=== PATIENT | male | born 1970 | race Caucasian/White ===

== ENCOUNTER 2017-01-27 14:41 | Emergency (ER) | payer MEDICAID, OTHER ==
[2017-01-27] MEDS ORDERED: Ibuprofen 600 MG Tab PO ONE (14:53)
--- NOTE | 2017-01-27 16:30 | EDM.PDOC ---
ED HPI GENERAL MEDICAL PROBLEM - General Chief Complaint: Back Pain or Injury Stated Complaint: BACK PAIN Time Seen by Provider: 01/27/17 15:00 Source of Information: Reports: Patient History Limitations: Reports: No Limitations - History of Present Illness INITIAL COMMENTS - FREE TEXT/NARRATIVE: 46 y.o.w. m with h/o chronic low back pain, came to the ed by PC due to R flank pain radiating to his R groin, which started a few days ago. No trauma. No bloody urine. Never dx'd with kidney stones. No N/V/D or dizziness oe any other acute medical issues at this time. 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 Lower Back Pain Score (Numeric/FACES): 4 - Related Data Allergies Allergy/AdvReac Type Severity Reaction Status Date / Time onion Allergy Swollen Verified 02/14/15 14:54 Tongue tramadol Allergy Nausea Verified 02/14/15 14:54 Home Meds: Home Meds Aspirin [Low Dose Aspirin EC] 81 mg DAILY 02/14/15 [History] Ibuprofen [Motrin] 600 mg PO DAILY #4 tab 01/27/17 [Rx] Ibuprofen [Motrin] 600 mg PO TID PRN #30 tab 01/27/17 [Rx] Tamsulosin [Tamsulosin 24 Hr] 0.4 mg PO DAILY #4 cap.er 01/27/17 [Rx] Past Medical History - Past Health History Medical/Surgical History: Denies Medical/Surgical History HEENT History: Reports: Other (See Below) Other HEENT History: born deaf left ear Cardiovascular History: Reports: CAD, Stents, Other (See Below) - Infectious Disease History Infectious Disease History: Reports: Chicken Pox, Mumps - Past Surgical History Cardiovascular Surgical History: Reports: Percutaneous Transluminal Angioplasty Social & Family History - Family History : Reports: Renal Disease/Insufficiency Endocrine/Metabolic: Reports: Diabetes, type II - Tobacco Use Smoking Status *Q: Never Smoker Second Hand Smoke Exposure: No - Caffeine Use Caffeine Use: Reports: Soda, Tea - Recreational Drug Use Recreational Drug Use: No ED ROS GENERAL - Review of Systems Review Of Systems: See Below Constitutional: Reports: No Symptoms HEENT: Reports: No Symptoms Respiratory: Reports: No Symptoms Cardiovascular: Reports: No Symptoms Endocrine: Reports: No Symptoms GI/Abdominal: Reports: No Symptoms : Reports: Flank Pain (r) Musculoskeletal: Reports: No Symptoms Skin: Reports: No Symptoms Neurological: Reports: No Symptoms Psychiatric: Reports: No Symptoms Hematologic/Lymphatic: Reports: No Symptoms Immunologic: Reports: No Symptoms ED EXAM, UPPER BACK/NECK PAIN - Physical Exam Exam: See Below Exam Limited By: No Limitations General Appearance: Alert, WD/WN, Mild Distress Eye Exam: Bilateral Eye: Normal Inspection Ears Exam: Normal External Exam Nose Exam: Normal Inspection Throat/Mouth Exam: Normal Inspection Head Exam: Atraumatic, Normocephalic Neck Exam: Non-Tender, Full Range of Motion, Normal Alignment Cardiovascular/Respiratory: Regular Rate, Rhythm, No M/R/G, Normal Peripheral Pulses GI/Abdominal: Normal Bowel Sounds (Male) Exam: No Hernia Rectal (Males) Exam: Deferred Back Exam: Normal Inspection Extremities: Normal Inspection, Normal Range of Motion 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 m with h/o chronic low back pain, came to the ed by PC due to R flank pain radiating to his R groin, which started a few days ago. No trauma. No bloody urine. Never dx'd with kidney stones. No N/V/D or dizziness oe any other acute medical issues at this time. BP 125/72 pulse 64 RR 18 pulse ox 99 temp 36.4 PE: R flank pain/tenderness Labs: CBC wasl, BMP was nl his BUN was 22, however. UA pos for hematuria no UTI Imaging: Stones in both kidneys, minor, no stone in ureter, no obstruction, no hydronephrosis. 1.4 cm LK rigt lower back, Please see report. Impression: Bilat kineystones with microsc hematuria, LK r lower back Tx: Motrin po ( pt refused I.M, I Vs). Flomax Reexam: Improved, pt was pain free on D/C Plan: D/C with instructions Last Recorded V/S: Last Vital Signs Temp 36.7 C 01/27/17 15:00 Pulse 85 01/27/17 16:33 Resp 20 01/27/17 16:33 BP 130/74 01/27/17 16:33 Pulse Ox 97 01/27/17 16:33 - Orders/Labs/Meds Orders: Active Orders 24 hr Category Date Time Status Cooling Warming Measures [RC] ASDIRECTED Care 01/27/17 14:54 Active Abdomen Pelvis wo Cont [CT] Stat Exams 01/27/17 14:53 Taken Ice Bag [Ice Therapy] [OM.PC] Routine Oth 01/27/17 14:54 Ordered Labs: Laboratory Tests 01/27/17 01/27/17 01/27/17 Range/Units 15:46 16:20 16:20 WBC 7.9 (4.5-12.0) X10-3/uL RBC 4.73 (4.30-5.75) x10(6)uL Hgb 15.4 (11.5-15.5) g/dL Hct 43.7 (30.0-51.3) % MCV 92.4 (80-96) fL MCH 32.5 (27.7-33.6) pg MCHC 35.2 (32.2-35.4) g/dL RDW 11.9 (11.5-15.5) % Plt Count 246 (125-369) X10(3)uL MPV 9.2 (7.4-10.4) fL Neut % (Auto) 66.8 (46-82) % Lymph % (Auto) 25.6 (13-37) % Nance % (Auto) 6.2 (4-12) % Eos % (Auto) 1 (1.0-5.0) % Baso % (Auto) 0 (0-2) % Neut # (Auto) 5.3 (1.6-8.3) # Lymph # (Auto) 2.0 (0.6-5.0) # Nance # (Auto) 0.5 (0.0-1.3) # Eos # (Auto) 0.1 (0.0-0.8) # Baso # (Auto) 0.0 (0.0-0.2) # Sodium 139 (135-145) mmol/L Potassium 4.0 (3.5-5.3) mmol/L Chloride 103 (100-110) mmol/L Carbon Dioxide 28 (21-32) mmol/L BUN 22 H (7-18) mg/dL Creatinine 1.1 (0.70-1.30) mg/dL Est Cr Clr Drug Dosing 91.12 mL/min Estimated GFR (MDRD) > 60 (>60) BUN/Creatinine Ratio 20.0 (9-20) Glucose 91 (80-116) mg/dL Calcium 8.8 (8.6-10.2) mg/dL Urine Color Yellow (YELLOW) Urine Appearance Clear (CLEAR) Urine pH 6.0 (5.0-6.5) Ur Specific Carlotta 1.025 (1.010-1.025) Urine Protein Negative (NEGATIVE) mg/dL Urine Glucose (UA) Normal (NEGATIVE) mg/dL Urine Ketones Negative (NEGATIVE) mg/dL Urine Occult Blood Large H (NEGATIVE) Urine Nitrite Negative (NEGATIVE) Urine Bilirubin Negative (NEGATIVE) Urine Urobilinogen Normal (NEGATIVE) mg/dL Ur Leukocyte Esterase Negative (NEGATIVE) Urine RBC 20-30 H (0) Urine WBC 0-5 (0) Ur Squamous Epith Cells Rare (NS,R,O) Urine Bacteria Occasional H (NS) Urine Mucus Occasional H (NS) Meds: Medications Discontinued Medications Generic Name Dose Route Start Last Admin Trade Name Freq PRN Reason Stop Dose Admin Ibuprofen 600 mg 01/27/17 14:53 01/27/17 16:14 Motrin PO 01/27/17 14:54 600 mg ONETIME ONE Administration Tamsulosin HCl 0.4 mg 01/27/17 16:32 01/27/17 16:35 Flomax PO 01/27/17 16:33 0.4 mg ONETIME ONE Administration Departure - Departure Time of Disposition: 16:24 Disposition: Home, Self-Care 01 Condition: Good Clinical Impression: Kidney stone on left side, Kidney stone on right side Hematuria Qualifiers: Hematuria type: other microscopic Qualified Code(s): R31.29 - Other microscopic hematuria - Discharge Information Prescriptions: Ibuprofen [Motrin] 600 mg PO DAILY #4 tab Ibuprofen [Motrin] 600 mg PO TID PRN #30 tab PRN Reason: Pain Tamsulosin [Tamsulosin 24 Hr] 0.4 mg PO DAILY #4 cap.er Referrals: Roberta Deshpande NP [Primary Care Provider] - Forms: ED Department Discharge Additional Instructions: Please take motrin for pain, please f/u with your PMD in 5 days to recheck the urine. urine must be free of blood then. Please come back to the ed if your symptoms get worse acutely. - My Orders Last 24 Hours: My Active Orders 01/27/17 14:53 Abdomen Pelvis wo Cont [CT] Stat 01/27/17 14:54 Cooling Warming Measures [RC] ASDIRECTED Ice Bag [Ice Therapy] [OM.PC] Routine - Assessment/Plan Last 24 Hours: My Active Orders 01/27/17 14:53 Abdomen Pelvis wo Cont [CT] Stat 01/27/17 14:54 Cooling Warming Measures [RC] ASDIRECTED Ice Bag [Ice Therapy] [OM.PC] Routine
[2017-01-27] MEDS ORDERED: Tamsulosin 0.4 MG Cap.ER PO ONE (16:32)
[2017-01-27 16:34] VITALS: BP 130/74
== END 2017-01-27 16:36 | disposition home or self-care (01) ==
LOC: FB.ED 14:41
DX: N20.0 Calculus of kidney (principal); R31.29 Other microscopic hematuria; I25.10 Atherosclerotic heart disease of native coronary artery without angina pectoris; Z79.82 Long term (current) use of aspirin; Z79.1 Long term (current) use of non-steroidal anti-inflammatories (NSAID); Z79.899 Other long term (current) drug therapy; Z88.5 Allergy status to narcotic agent; Z91.018 Allergy to other foods
CPT/HCPCS: 36415; 74176; 80048; 81001; 85025; 99284; A9270; 99283

== ENCOUNTER 2017-02-23 17:04 | Emergency (ER) | payer MEDICAID, OTHER ==
[2017-02-23] MEDS ORDERED: Ketorolac 30 MG/ML SDV IVPUSH ONE (17:23)
[2017-02-23] MEDS ORDERED: SUMAtriptan 6 MG/0.5 ML SDV SUBCUT ONE (17:24)
[2017-02-23] MEDS ORDERED: Ondansetron 4 MG/2 ML SDV IVPUSH ONE (17:25)
--- NOTE | 2017-02-23 17:27 | EDM.PDOC ---
ED HPI GENERAL MEDICAL PROBLEM - General Stated Complaint: shakey head ache Time Seen by Provider: 02/23/17 17:04 Source of Information: Reports: Patient (PC), Family History Limitations: Reports: Physical Impairment - History of Present Illness INITIAL COMMENTS - FREE TEXT/NARRATIVE: 46 y.o.w.m with a h/o kidneystones came to the ed with low back pain fewer and worst headache ever, located behind his left eye with photophobia. Pt came by PC , no family is present. No trauma. Pt was seen by me a few weeks ago for bilt kidney stones. Pt is a poor historian, no family is present. 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 Generalized Pain Score (Numeric/FACES): 6 - Related Data Allergies Allergy/AdvReac Type Severity Reaction Status Date / Time onion Allergy Swollen Verified 02/14/15 14:54 Tongue tramadol Allergy Nausea Verified 02/23/17 17:30 Home Meds: Home Meds Aspirin [Low Dose Aspirin EC] 81 mg DAILY 02/14/15 [History] Ibuprofen [Motrin] 600 mg PO TID PRN #30 tab 01/27/17 [Rx] Past Medical History - Past Health History Medical/Surgical History: Denies Medical/Surgical History HEENT History: Reports: Other (See Below) Other HEENT History: born deaf left ear Cardiovascular History: Reports: CAD, Stents, Other (See Below) - Infectious Disease History Infectious Disease History: Reports: Chicken Pox, Mumps - Past Surgical History Cardiovascular Surgical History: Reports: Percutaneous Transluminal Angioplasty Social & Family History - Family History : Reports: Renal Disease/Insufficiency Endocrine/Metabolic: Reports: Diabetes, type II - Tobacco Use Smoking Status *Q: Never Smoker Second Hand Smoke Exposure: No - Caffeine Use Caffeine Use: Reports: Soda, Tea - Recreational Drug Use Recreational Drug Use: No ED ROS GENERAL - Review of Systems Review Of Systems: See Below Constitutional: Reports: Fever, Chills, Weakness HEENT: Reports: Other (headache) Respiratory: Reports: No Symptoms Cardiovascular: Reports: No Symptoms Endocrine: Reports: No Symptoms GI/Abdominal: Reports: No Symptoms : Reports: Hematuria (not new) Musculoskeletal: Reports: Back Pain Skin: Reports: No Symptoms Neurological: Reports: No Symptoms Psychiatric: Reports: No Symptoms Hematologic/Lymphatic: Reports: No Symptoms Immunologic: Reports: No Symptoms ED EXAM, NEURO - Physical Exam Exam: See Below Exam Limited By: No Limitations General Appearance: Alert, WD/WN, Mild Distress Eye Exam: Bilateral Eye: Normal Inspection Ears: Normal External Exam Nose: Normal Inspection, Normal Mucosa Throat/Mouth: Normal Inspection, Normal Lips Head Exam: Atraumatic, Normocephalic Neck: Normal Inspection, Supple, Non-Tender, Full Range of Motion Respiratory/Chest: No Respiratory Distress, Lungs Clear, Normal Breath Sounds, No Accessory Muscle Use, Chest Non-Tender Cardiovascular: Normal Peripheral Pulses, Regular Rate, Rhythm, No Edema, No Gallop, No JVD, No Murmur GI/Abdominal: Normal Bowel Sounds, Soft, Non-Tender, No Organomegaly (Male) Exam: Deferred Rectal (Males) Exam: Deferred Neurological: Alert, Normal Mood/Affect, Normal Dorsiflexion, CN II-XII Intact, Normal Gait, Oriented x 3 Back Exam: Normal Inspection, Full Range of Motion Extremities: Normal Inspection, Normal Range of Motion, Non-Tender, No Pedal Edema Psychiatric: Normal Affect, Anxious Skin Exam: Warm, Dry, Intact, Normal Color, No Rash Course - Vital Signs Text/Narrative:: 46 y.o.w.m with a h/o kidneystones came to the ed with low back pain fewer and worst headache ever, located behind his left eye with photophobia. Pt came by PC , no family is present. No trauma. Pt was seen by me a few weeks ago for bilt kidney stones. Pt is a poor historian, no family is present. BP 135/73 puls 83 Temp 38.8 RR 18 Pulse ox 97% on RA PE: WNWD WM c/o Photophobia, worst headache and chronic mid low back pain. Kernig and Brudsinsky test were neg. FNF was neg. Imaging: CT Head: NAD Labs: WBC 8.6 HGB 16.6 HCT 44.1 BMP and INR were neg and so was the UDS Impression: Hematuria chronic intermittent, H/O kidney stones, chronic low back pain. Gen body ache, elevated temp. Tension Headache Migraine with photophobia. Tx: Toradol, Tylenol, Ice to lower back, Pt refused imitrex. Reexam: H/A Improved, pt requested to be d/c'd to eat at home. BP improved, please see nursing not. Plan: D/C with instructions Last Recorded V/S: Last Vital Signs Temp 38.1 C 02/23/17 19:25 Pulse 92 02/23/17 19:25 Resp 16 02/23/17 19:25 BP 129/67 02/23/17 19:25 Pulse Ox 97 02/23/17 19:25 - Orders/Labs/Meds Orders: Active Orders 24 hr Category Date Time Status CXR [Chest 2V] [CR] Stat Exams 02/23/17 17:28 Taken Head wo Cont [CT] Stat Exams 02/23/17 17:23 Taken CULTURE BLOOD [BC] Stat Lab 02/23/17 17:35 Received Saline Lock Insert [OM.PC] Routine Oth 02/23/17 17:52 Ordered Labs: Laboratory Tests 02/23/17 02/23/17 02/23/17 Range/Units 17:29 17:29 17:35 WBC 8.1 (4.5-12.0) X10-3/uL RBC 5.32 (4.30-5.75) x10(6)uL Hgb 16.6 H (11.5-15.5) g/dL Hct 48.5 (30.0-51.3) % MCV 91.2 (80-96) fL MCH 31.3 (27.7-33.6) pg MCHC 34.3 (32.2-35.4) g/dL RDW 12.0 (11.5-15.5) % Plt Count 198 (125-369) X10(3)uL MPV 8.5 (7.4-10.4) fL Add Manual Diff Yes Neutrophils % (Manual) 86 H (46-82) % Lymphocytes % (Manual) 7 L (13-37) % Monocytes % (Manual) 7 (4-12) % PT (8.7-11.1) INR (0.89-1.13) Sodium (135-145) mmol/L Potassium (3.5-5.3) mmol/L Chloride (100-110) mmol/L Carbon Dioxide (21-32) mmol/L BUN (7-18) mg/dL Creatinine (0.70-1.30) mg/dL Est Cr Clr Drug Dosing mL/min Estimated GFR (MDRD) (>60) BUN/Creatinine Ratio (9-20) Glucose (80-116) mg/dL Lactic Acid (0.4-2.2) mmol/L Calcium (8.6-10.2) mg/dL Urine Color Yellow (YELLOW) Urine Appearance Clear (CLEAR) Urine pH 6.5 (5.0-6.5) Ur Specific K[place] 1.010 (1.010-1.025) Urine Protein Negative (NEGATIVE) mg/dL Urine Glucose (UA) Normal (NEGATIVE) mg/dL Urine Ketones Negative (NEGATIVE) mg/dL Urine Occult Blood Large H (NEGATIVE) Urine Nitrite Negative (NEGATIVE) Urine Bilirubin Negative (NEGATIVE) Urine Urobilinogen Normal (NEGATIVE) mg/dL Ur Leukocyte Esterase Negative (NEGATIVE) Urine RBC 40-50 H (0) Urine WBC 0-5 (0) Ur Squamous Epith Cells Few H (NS,R,O) Urine Bacteria Rare H (NS) Urine Opiates Screen Negative (NEGATIVE) Ur Oxycodone Screen Negative (NEGATIVE) Ur Propoxyphene Screen Negative (NEGATIVE) Ur Barbituates Screen Negative (NEGATIVE) Ur Tricyclics Screen Negative (NEGATIVE) Ur Phencyclidine Scrn Negative (NEGATIVE) Ur Amphetamine Screen Negative (NEGATIVE) Urine MDMA Screen Negative (NEGATIVE) U Benzodiazepines Scrn Negative (NEGATIVE) U Cocaine Metab Screen Negative (NEGATIVE) U Marijuana (THC) Screen Negative (NEGATIVE) 02/23/17 02/23/17 02/23/17 Range/Units 17:35 17:35 17:35 WBC (4.5-12.0) X10-3/uL RBC (4.30-5.75) x10(6)uL Hgb (11.5-15.5) g/dL Hct (30.0-51.3) % MCV (80-96) fL MCH (27.7-33.6) pg MCHC (32.2-35.4) g/dL RDW (11.5-15.5) % Plt Count (125-369) X10(3)uL MPV (7.4-10.4) fL Add Manual Diff Neutrophils % (Manual) (46-82) % Lymphocytes % (Manual) (13-37) % Monocytes % (Manual) (4-12) % PT 10.5 (8.7-11.1) INR 1.04 (0.89-1.13) Sodium 138 (135-145) mmol/L Potassium 3.7 (3.5-5.3) mmol/L Chloride 101 (100-110) mmol/L Carbon Dioxide 29 (21-32) mmol/L BUN 15 (7-18) mg/dL Creatinine 1.2 (0.70-1.30) mg/dL Est Cr Clr Drug Dosing 83.53 mL/min Estimated GFR (MDRD) > 60 (>60) BUN/Creatinine Ratio 12.5 (9-20) Glucose 93 (80-116) mg/dL Lactic Acid 1.5 (0.4-2.2) mmol/L Calcium 8.9 (8.6-10.2) mg/dL Urine Color (YELLOW) Urine Appearance (CLEAR) Urine pH (5.0-6.5) Ur Specific K[place]ler (1.010-1.025) Urine Protein (NEGATIVE) mg/dL Urine Glucose (UA) (NEGATIVE) mg/dL Urine Ketones (NEGATIVE) mg/dL Urine Occult Blood (NEGATIVE) Urine Nitrite (NEGATIVE) Urine Bilirubin (NEGATIVE) Urine Urobilinogen (NEGATIVE) mg/dL Ur Leukocyte Esterase (NEGATIVE) Urine RBC (0) Urine WBC (0) Ur Squamous Epith Cells (NS,R,O) Urine Bacteria (NS) Urine Opiates Screen (NEGATIVE) Ur Oxycodone Screen (NEGATIVE) Ur Propoxyphene Screen (NEGATIVE) Ur Barbituates Screen (NEGATIVE) Ur Tricyclics Screen (NEGATIVE) Ur Phencyclidine Scrn (NEGATIVE) Ur Amphetamine Screen (NEGATIVE) Urine MDMA Screen (NEGATIVE) U Benzodiazepines Scrn (NEGATIVE) U Cocaine Metab Screen (NEGATIVE) U Marijuana (THC) Screen (NEGATIVE) Meds: Medications Discontinued Medications Generic Name Dose Route Start Last Admin Trade Name Freq PRN Reason Stop Dose Admin Acetaminophen 650 mg 02/23/17 18:26 02/23/17 18:33 Tylenol PO 02/23/17 18:27 650 mg ONETIME ONE Administration Al Hydroxide/Mg Hydroxide 30 ml 02/23/17 18:26 02/23/17 18:33 Mag-Al Susp PO 02/23/17 18:27 30 ml ONETIME STA Administration Ketorolac Tromethamine 30 mg 02/23/17 17:23 02/23/17 18:00 Toradol IVPUSH 02/23/17 17:24 30 mg ONETIME ONE Administration Ondansetron HCl 8 mg 02/23/17 17:25 02/23/17 18:06 Zofran IVPUSH 02/23/17 17:26 8 mg ONETIME ONE Administration Sodium Chloride 10 ml 02/23/17 17:52 02/23/17 18:06 Saline Flush FLUSH 10 ml ASDIRECTED PRN Administration Keep Vein Open Sumatriptan Succinate 6 mg 02/23/17 17:24 02/23/17 18:07 Imitrex SUBCUT 02/23/17 17:25 Not Given ONETIME ONE Departure - Departure Time of Disposition: 19:26 Disposition: Home, Self-Care 01 Condition: Good Clinical Impression: Tension headache, Body aches Hematuria Qualifiers: Hematuria type: other microscopic Qualified Code(s): R31.29 - Other microscopic hematuria Back pain Qualifiers: Back pain location: low back pain Chronicity: chronic Back pain laterality: bilateral Sciatica presence: without sciatica Qualified Code(s): M54.5 - Low back pain - Discharge Information Referrals: Roberta Deshpande PRIMARY CLINICIAN [Primary Care Provider] - Forms: ED Department Discharge Additional Instructions: Please apply ice to the affected areas, please take motrin with food for pain, please follow up with an urologist, come back to the ed if your symptoms get worse acutely - My Orders Last 24 Hours: My Active Orders 02/23/17 17:23 Head wo Cont [CT] Stat 02/23/17 17:28 CXR [Chest 2V] [CR] Stat 02/23/17 17:35 CULTURE BLOOD [BC] Stat 02/23/17 17:52 Saline Lock Insert [OM.PC] Routine - Assessment/Plan Last 24 Hours: My Active Orders 02/23/17 17:23 Head wo Cont [CT] Stat 02/23/17 17:28 CXR [Chest 2V] [CR] Stat 02/23/17 17:35 CULTURE BLOOD [BC] Stat 02/23/17 17:52 Saline Lock Insert [OM.PC] Routine
[2017-02-23] MEDS: Sodium Chloride 0.9% 10 ML Syringe FLUSH PRN ×2 (18:00→18:06)
[2017-02-23] MEDS ORDERED: Aluminum Hydroxide/Magnesium Hydroxide Susp 30 ML Cup PO STA (18:26)
[2017-02-23] MEDS ORDERED: Acetaminophen Soln 650 MG/20.3 ML UD Cup PO ONE (18:26)
[2017-02-23 19:27] VITALS: BP 129/67
--- NOTE | 2017-02-25 13:49 | CR ---
INDICATION: Cough. CHEST: PA and lateral views of the chest 02/23/2017 were compared with 2014 AP view, and revealed lung markings do appear essentially unchanged from the previous study, with no definite active infiltrate or effusion. Previously visualizable nipple shadow is noted at the right lower lung field on the 2014 study. An active infiltrate or effusion is not seen at this time. There may be some minimal calcification in the arch of the aorta with perhaps very minimal increase in tortuosity of the aorta. The heart is normal in size and shape, however. IMPRESSION: 1. No definite acute process. 2. ASD aorta, minimal. 3. Question a minimal degree of obstructive airway disease, as there is some flattening of diaphragm leaf on the lateral view and minimal prominence of AP diameter. MTDD
== END 2017-02-23 19:27 | disposition home or self-care (01) ==
LOC: FB.ED 17:04
DX: G44.201 Tension-type headache, unspecified, intractable (principal); M54.5 Low back pain; R31.29 Other microscopic hematuria; G89.29 Other chronic pain; Z91.018 Allergy to other foods; Z88.6 Allergy status to analgesic agent; Z79.82 Long term (current) use of aspirin
CPT/HCPCS: 36415; 70450; 71020; 80048; 80305; 81001; 83605; 85025; 85610; 87040; 96374; 96375; 99283; A9270; J1885; J2405; J7050; 99284

== ENCOUNTER 2017-02-26 03:24 | Emergency (ER) | payer SELFPAY ==
[2017-02-26 03:55] VITALS: BP 132/82
[2017-02-26] MEDS ORDERED: Aspirin 81 MG Tab.Chew PO ONE (03:56)
[2017-02-26] MEDS ORDERED: Sodium Chloride 0.9% 10 ML Syringe FLUSH PRN (04:00)
[2017-02-26] MEDS ORDERED: Aluminum Hydroxide/Magnesium Hydroxide Susp 30 ML Cup PO STA (04:00)
--- NOTE | 2017-02-26 04:05 | EDM.PDOC ---
ED HPI GENERAL MEDICAL PROBLEM - General Chief Complaint: Chest Pain Stated Complaint: CHEST PAIN Time Seen by Provider: 02/26/17 03:53 Source of Information: Reports: Patient (PV) History Limitations: Reports: No Limitations - History of Present Illness INITIAL COMMENTS - FREE TEXT/NARRATIVE: 46 y.o.w.m with a H/O kidney stones and hematuria came to the ed because of pain at his left ant chest wall with deep inspiration. No diaphoresis, no sweating, no N/V/D or any other acute medical issues. 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: Aspirin, EKG Generalized Pain Score (Numeric/FACES): 8 - Related Data Allergies Allergy/AdvReac Type Severity Reaction Status Date / Time onion Allergy Swollen Verified 02/26/17 03:51 Tongue tramadol Allergy Nausea Verified 02/26/17 03:51 Home Meds: Home Meds Aspirin [Low Dose Aspirin EC] 81 mg PO DAILY 02/14/15 [History] Ibuprofen [Motrin] 600 mg PO TID PRN #30 tab 01/27/17 [Rx] Famotidine [Pepcid] 20 mg PO DAILY #30 tablet 02/26/17 [Rx] Tamsulosin [Flomax] 0.4 mg PO DAILY 02/26/17 [History] Past Medical History - Past Health History Medical/Surgical History: Denies Medical/Surgical History HEENT History: Reports: Other (See Below) Other HEENT History: born deaf left ear Cardiovascular History: Reports: CAD, Stents, Other (See Below) Genitourinary History: Reports: Renal Calculus Psychiatric History: Reports: Anxiety - Infectious Disease History Infectious Disease History: Reports: Chicken Pox, Mumps - Past Surgical History Cardiovascular Surgical History: Reports: Percutaneous Transluminal Angioplasty Social & Family History - Family History : Reports: Renal Disease/Insufficiency Endocrine/Metabolic: Reports: Diabetes, type II - Tobacco Use Smoking Status *Q: Never Smoker Second Hand Smoke Exposure: No - Caffeine Use Caffeine Use: Reports: None - Recreational Drug Use Recreational Drug Use: No ED ROS GENERAL - Review of Systems Review Of Systems: See Below Constitutional: Reports: No Symptoms HEENT: Reports: No Symptoms Respiratory: Reports: Pleuritic Chest Pain Cardiovascular: Reports: No Symptoms Endocrine: Reports: No Symptoms GI/Abdominal: Reports: Abdominal Pain : Reports: No Symptoms Musculoskeletal: Reports: No Symptoms Skin: Reports: No Symptoms Neurological: Reports: No Symptoms Psychiatric: Reports: No Symptoms Hematologic/Lymphatic: Reports: No Symptoms Immunologic: Reports: No Symptoms ED EXAM, GENERAL - Physical Exam Exam: See Below Exam Limited By: No Limitations General Appearance: Alert, WD/WN, Mild Distress Eye Exam: Bilateral Eye: Normal Inspection Ears: Normal External Exam Ear Exam: Bilateral Ear: Auricle Normal Nose: Normal Inspection, Normal Mucosa, No Blood Throat/Mouth: Normal Inspection, Normal Lips, Other (poor dentition) Head: Atraumatic, Normocephalic Neck: Normal Inspection, Supple, Non-Tender Respiratory/Chest: No Respiratory Distress, Lungs Clear, Normal Breath Sounds Cardiovascular: Normal Peripheral Pulses, Regular Rate, Rhythm, No Edema Peripheral Pulses: 1+: Radial (L) GI/Abdominal: Normal Bowel Sounds, Soft, Non-Tender (Male) Exam: No Hernia Rectal (Males) Exam: Deferred Back Exam: Normal Inspection, Full Range of Motion, Muscle Spasm (low back pain , cronic) Extremities: Normal Inspection, Normal Range of Motion, Non-Tender, No Pedal Edema Neurological: Alert, Oriented, CN II-XII Intact, Normal Cognition, Normal Gait Psychiatric: Normal Affect, Normal Mood Skin Exam: Warm, Dry, Intact, Normal Color, No Rash Lymphatic: No Adenopathy EKG INTERPRETATION EKG Date: 02/26/17 Time: 03:35 Rhythm: NSR Rate (Beats/Min): 85 [place]: Normal P-Wave: Present QRS: Normal ST-T: Normal QT: Normal Comparison: NA - No Prior EKG Course - Vital Signs Text/Narrative:: 46 y.o.w.m with a H/O kidney stones and hematuria came to the ed because of pain at his left ant chest wall with deep inspiration. No diaphoresis, no sweating, no N/V/D or any other acute medical issues. BP 132/86 RR 26 Pulse ox 99% Temp 38.6 pulse 78 PE WNWD W M, anxious, pleurisy Labs: CBC anbd BMP were nl Ca was 8.5 Troponin was 0.017 INR 1.15 Imaging: CXR NAD, possible early COPD Impression: Viral Syndome, Fever, cause not determined, pleurisy CP Tx: Toradol Reexam: Improved, temp was 37.1 on D/C Plan: D/C with instructions Addendum: I attempted to F/U on Mr Tinsley twice this am, no answer. Last Recorded V/S: Last Vital Signs Temp 37.6 C 02/26/17 05:20 Pulse 78 02/26/17 03:53 Resp 26 H 02/26/17 03:53 BP 132/82 02/26/17 03:53 Pulse Ox 99 02/26/17 03:53 - Orders/Labs/Meds Orders: Active Orders 24 hr Category Date Time Status EKG 12 Lead [EK] Routine Ther 02/26/17 03:30 Ordered Labs: Laboratory Tests 02/26/17 02/26/17 02/26/17 Range/Units 03:55 03:55 03:55 WBC 5.6 (4.5-12.0) X10-3/uL RBC 4.89 (4.30-5.75) x10(6)uL Hgb 14.8 (11.5-15.5) g/dL Hct 45.0 (30.0-51.3) % MCV 92.1 (80-96) fL MCH 30.4 (27.7-33.6) pg MCHC 33.0 (32.2-35.4) g/dL RDW 11.9 (11.5-15.5) % Plt Count 201 (125-369) X10(3)uL MPV 8.9 (7.4-10.4) fL Neut % (Auto) 78.1 (46-82) % Lymph % (Auto) 11.5 L (13-37) % Ceiba % (Auto) 8.1 (4-12) % Eos % (Auto) 0 L (1.0-5.0) % Baso % (Auto) 2 (0-2) % Neut # (Auto) 4.4 (1.6-8.3) # Lymph # (Auto) 0.6 (0.6-5.0) # Ceiba # (Auto) 0.5 (0.0-1.3) # Eos # (Auto) 0.0 (0.0-0.8) # Baso # (Auto) 0.1 (0.0-0.2) # PT 11.6 H (8.7-11.1) INR 1.15 H (0.89-1.13) D-Dimer, Quantitative < 100 L (100-400) ng/mL Sodium (135-145) mmol/L Potassium (3.5-5.3) mmol/L Chloride (100-110) mmol/L Carbon Dioxide (21-32) mmol/L BUN (7-18) mg/dL Creatinine (0.70-1.30) mg/dL Est Cr Clr Drug Dosing mL/min Estimated GFR (MDRD) (>60) BUN/Creatinine Ratio (9-20) Glucose (80-116) mg/dL Lactic Acid (0.4-2.2) mmol/L Calcium (8.6-10.2) mg/dL Troponin I (<0.017-0.056) ng/mL 02/26/17 02/26/17 02/26/17 Range/Units 03:55 03:55 03:55 WBC (4.5-12.0) X10-3/uL RBC (4.30-5.75) x10(6)uL Hgb (11.5-15.5) g/dL Hct (30.0-51.3) % MCV (80-96) fL MCH (27.7-33.6) pg MCHC (32.2-35.4) g/dL RDW (11.5-15.5) % Plt Count (125-369) X10(3)uL MPV (7.4-10.4) fL Neut % (Auto) (46-82) % Lymph % (Auto) (13-37) % Ceiba % (Auto) (4-12) % Eos % (Auto) (1.0-5.0) % Baso % (Auto) (0-2) % Neut # (Auto) (1.6-8.3) # Lymph # (Auto) (0.6-5.0) # Ceiba # (Auto) (0.0-1.3) # Eos # (Auto) (0.0-0.8) # Baso # (Auto) (0.0-0.2) # PT (8.7-11.1) INR (0.89-1.13) D-Dimer, Quantitative (100-400) ng/mL Sodium 137 (135-145) mmol/L Potassium 3.7 (3.5-5.3) mmol/L Chloride 102 (100-110) mmol/L Carbon Dioxide 28 (21-32) mmol/L BUN 16 (7-18) mg/dL Creatinine 1.2 (0.70-1.30) mg/dL Est Cr Clr Drug Dosing 83.53 mL/min Estimated GFR (MDRD) > 60 (>60) BUN/Creatinine Ratio 13.3 (9-20) Glucose 118 H (80-116) mg/dL Lactic Acid 1.0 (0.4-2.2) mmol/L Calcium 8.5 L (8.6-10.2) mg/dL Troponin I < 0.017 L (<0.017-0.056) ng/mL Meds: Medications Discontinued Medications Generic Name Dose Route Start Last Admin Trade Name Freq PRN Reason Stop Dose Admin Al Hydroxide/Mg Hydroxide 30 ml 02/26/17 04:00 02/26/17 04:08 Mag-Al Susp PO 02/26/17 04:01 30 ml ONETIME STA Administration Aspirin 324 mg 02/26/17 03:56 02/26/17 03:59 Aspirin PO 02/26/17 03:57 324 mg ONETIME ONE Administration Ketorolac Tromethamine 30 mg 02/26/17 04:08 02/26/17 04:12 Toradol IVPUSH 02/26/17 04:09 30 mg ONETIME ONE Administration Sodium Chloride 10 ml 02/26/17 04:00 Saline Flush FLUSH ASDIRECTED PRN Keep Vein Open Departure - Departure Time of Disposition: 05:04 Disposition: Home, Self-Care 01 Condition: Good Clinical Impression: Viral syndrome, Atypical chest pain Prescriptions: Famotidine [Pepcid] 20 mg PO DAILY #30 tablet Referrals: PCP,None [Primary Care Provider] - Forms: ED Department Discharge Additional Instructions: Please take motrin/tylenol for temperature above 100F, Pepcid as recommended, please f/u with your PMD, come back if your symptoms get worse acutely. - My Orders Last 24 Hours: My Active Orders 02/26/17 03:30 EKG 12 Lead [EK] Routine - Assessment/Plan Last 24 Hours: My Active Orders 02/26/17 03:30 EKG 12 Lead [EK] Routine
[2017-02-26] MEDS ORDERED: Ketorolac 30 MG/ML SDV IVPUSH ONE (04:08)
--- NOTE | 2017-02-26 10:22 | CR ---
INDICATION: Chest pain. CHEST: AP upright portable view of the chest 02/26/2017 was compared with 02/23 and 02/14/2015, revealing no significant appearing interval change or acute process, allowing for change from PA to AP on the current study and relatively poor inspiration on the current study. The heart did not appear enlarged. Overlying EKG leads are noted. The aorta is minimally tortuous. An active infiltrate or effusion was not identified. IMPRESSION: Stable chest. No acute process. MTDD
== END 2017-02-26 05:20 | disposition home or self-care (01) ==
LOC: FB.ED 03:24
DX: R07.89 Other chest pain (principal); R50.9 Fever, unspecified; B34.9 Viral infection, unspecified; Z91.018 Allergy to other foods; Z88.8 Allergy status to other drugs, medicaments and biological substances; Z79.82 Long term (current) use of aspirin; Z79.899 Other long term (current) drug therapy
CPT/HCPCS: 36415; 71010; 80048; 83605; 84484; 85025; 85379; 85610; 93005; 99283; A9270; J1885; 93010; 96374; 99284

== ENCOUNTER 2021-10-03 05:59 | Emergency (ER) | payer SELFPAY ==
[2021-10-03 06:20] VITALS: BP 153/92; PULSE 89
[2021-10-03] MEDS ORDERED: Alum Hydroxide/Mag Hydroxide 15 ML, Lidocaine 2% 15 ML PO ONE ×2 (06:42)
[2021-10-03 07:59] LABS: ESTIMATED GFR 66 mL/min (>60)
== END 2021-10-03 09:38 | disposition home or self-care (01) ==
LOC: FB.ED 05:59
DX: N20.0 Calculus of kidney (principal); K21.9 Gastro-esophageal reflux disease without esophagitis
CPT/HCPCS: 36415; 74176; 80053; 81001; 82150; 83690; 85025; 93005; 93010; 99282; 99284; A9270

== ENCOUNTER 2024-01-26 08:27 | Emergency (ER) | payer SELFPAY ==
[2024-01-26] MEDS ORDERED: Sodium Chloride 0.9% 10 ML Syringe FLUSH PRN (08:32)
[2024-01-26] MEDS: Ondansetron 4 MG/2 ML SDV IVPUSH ONE (08:53)
[2024-01-26] MEDS: Ketorolac 30 MG/ML SDV IVPUSH ONE (08:54)
[2024-01-26] MEDS: Morphine 4 MG/ML VIAL IVPUSH ONE (08:55)
[2024-01-26] MEDS: Sodium Chloride 0.9% 1,000 ML IV SCH (08:57)
[2024-01-26 09:07] LABS: BILIRUBIN,URINE NEGATIVE (NEGATIVE); GLUCOSE,URINE NORMAL (NORMAL); KETONES,URINE NEGATIVE (NEGATIVE); LEUKOCYTE ESTERASE,URINE NEGATIVE (NEGATIVE); NITRITE,URINE NEGATIVE (NEGATIVE); OCCULT BLOOD,URINE LARGE (NEGATIVE); PROTEIN,URINE NEGATIVE (NEGATIVE); UROBILINOGEN,URINE NORMAL (NEGATIVE)
[2024-01-26 09:08] LABS: APPEARANCE,URINE SLIGHTLY CLOUDY (CLEAR); COLOR,URINE YELLOW (YELLOW)
[2024-01-26 09:11] LABS: BASOPHILS PERCENT AUTO 0.4 % (0.3-3.8); BLOOD UREA NITROGEN,BUN 20 mg/dL (7-18); BUN/CREATININE RATIO 14.3 (9-20); CARBON DIOXIDE,CO2 28 mmol/L (21-32); CHLORIDE,CL 104 mmol/L (100-110); CREATININE 1.4 mg/dL (0.70-1.30); EOSINOPHILS PERCENT AUTO 0.2 % (0.1-6.8); ESTIMATED GFR 60 mL/min (>60); GLUCOSE RANDOM 120 mg/dL (80-116); HEMATOCRIT 47.1 % (38.3-50.1); HEMOGLOBIN 16.5 g/dL (12.9-17.7); LYMPHOCYTES ABSOLUTE AUTO 1.1 x10-3/uL (0.5-4.5); LYMPHOCYTES PERCENT AUTO 13.5 % (15.8-45.3); MEAN CORPUSCULAR HEMOGLOBIN 32.7 pg (27.0-33.3); MEAN CORPUSCULAR VOLUME 93.4 fL (80.8-98.7); MEAN PLATELET VOLUME 8.7 fL (6.7-11.0); MONOCYTES ABSOLUTE AUTO 0.4 x10-3/uL (0.0-1.2); MONOCYTES PERCENT AUTO 4.7 % (5.5-15.2); NEUTROPHILS ABSOLUTE AUTO 6.7 x10-3/uL (1.7-6.9); NEUTROPHILS PERCENT AUTO 81.2 % (40.3-71.8); PLATELET COUNT,PLT 251 x10(3)uL (117-477); POTASSIUM,K 3.7 mmol/L (3.5-5.3); RED BLOOD CELL COUNT 5.04 x10(6)uL (3.90-5.90); RED CELL DISTRIBUTION WIDTH 12.7 % (12.4-15.0); SODIUM,NA 140 mmol/L (135-145); WHITE BLOOD CELL COUNT,WBC 8.3 x10-3/uL (3.2-10.1)
[2024-01-26 09:16] LABS: BACTERIA,URINE MODERATE (NS); RBC,URINE >100 (0-5); SQUAMOUS EPITHELIAL CELLS,UR OCCASIONAL (NS,R,O); WBC,URINE 0-5 (0-5)
[2024-01-26 10:03] VITALS: BP 143/90; PULSE 82
[2024-01-26] MEDS: Prochlorperazine 10 MG/2 ML SDV IVPUSH ONE (10:06)
== END 2024-01-26 10:21 | disposition home or self-care (01) ==
LOC: FB.ED 08:27
DX: N20.2 Calculus of kidney with calculus of ureter (principal); Z91.018 Allergy to other foods; Z88.8 Allergy status to other drugs, medicaments and biological substances; Z79.82 Long term (current) use of aspirin; Z79.899 Other long term (current) drug therapy; Z86.16 Personal history of COVID-19
CPT/HCPCS: 74176; 80048; 81001; 85025; 96361; 96374; 96375; 99284; 99284-25; J0780; J1885; J2270; J2405; J7030